=== PATIENT | male | born 1990 | race Caucasian/White ===

== ENCOUNTER 2017-07-07 22:31 | Emergency (ER) | payer SELFPAY ==
[~2017-07-07] VITALS: Ht 182.9 cm; Wt 70.0 kg
[~2017-07-07 22:31] MED LIST: BACT800T5 PO; CIPR500T4 PO; NOVONP2 SQ; NRSS SQ
[2017-07-07 22:32] VITALS: BP 173/112; PULSE 93; RESP 16; TEMP 97.8; O2SAT 99
--- NOTE | 2017-07-08 00:27 | PD ---
HPI Chief Complaint: Skin Problem Time Seen by Provider: 23:14 Travel History International Travel<30 days: No Contact w/Intl Traveler<30days: No Traveled to known affect area: No History of Present Illness HPI Patient is a 24-year-old male presenting to the emergency department for evaluation of a possible abscess behind his right ear. Patient states it started 3 days ago. He reports a history of the same 2 years ago and had it drained. He denies any significant pain but states it sore and rates it a 3 out of 10. He denies any fever, chills, redness or warmth. The muscle was gradual, symptoms are mild in nature. Patient has no other complaints at this time. He denies a significant past medical history. PFS Past Medical History Medical History: Denies Significant Hx Asthma: No Autoimmune Disease: No Blood Disorders: No Anxiety: No Depression: No Heart Rhythm Problems: No Cardiovascular Problems: No High Cholesterol: No Chest Pain: No Congestive Heart Failure: No COPD: No Diabetes: Yes Patient Takes Glucophage: No Diminished Hearing: No Endocrine: No Gastrointestinal Disorders: Yes (REFLUX WHEN HE WAS YOUNGER) Genitourinary: No Hypertension: No Implanted Vascular Access Dvce: No Musculoskeletal: No Neurologic: No Psychiatric: No Reproductive: No Respiratory: No Immunizations Current: Yes Sleep Apnea: No Past Surgical History Appendectomy: Yes Tonsillectomy: Yes Other Surgery: No Social History Alcohol Use: Yes (OCCASIONAL) Tobacco Use: Yes (1PPD) Substance Use: No (DENIES) Allergies-Medications (Allergen,Severity, Reaction): Coded Allergies: cefaclor (Unverified Allergy, Severe, Rash, 09/22/16) Reported Meds & Prescriptions Reported Meds & Active Scripts Active Bactrim DS (Sulfamethoxazole-Trimethoprim DS) 1 Tab Tab 1 Tab PO Q12 7 Days Cipro (Ciprofloxacin HCl) 500 Mg Tab 500 Mg PO BID 7 Days Reported Novolin Regular Insulin Supplemental Scale (Insulin Human Regular) U 100 Inj 1 Unit SQ .XX Novolin N (Insulin Human NPH) 100 Units/Ml Inj 1 Units SQ DIRECTED Review of Systems Except as stated in HPI: all other systems reviewed are Neg Physical Exam Narrative GENERAL: Well-developed, well-nourished, alert male. Presenting in no acute distress. SKIN: Warm and dry. 1 cm sebaceous cyst to the postauricular area on the right ear. No surrounding erythema or induration. HEAD: Normocephalic. EYES: No scleral icterus. No injection or drainage. NECK: Supple, trachea midline. No JVD or lymphadenopathy. CARDIOVASCULAR: Regular rate and rhythm without murmurs, gallops, or rubs. RESPIRATORY: Breath sounds equal bilaterally. No accessory muscle use. GASTROINTESTINAL: Abdomen soft, non-tender, nondistended. MUSCULOSKELETAL: No cyanosis, or edema. BACK: Nontender without obvious deformity. No CVA tenderness Data Data Last Documented VS Vital Signs Date Time Temp Pulse Resp B/P (MAP) Pulse Ox O2 Delivery O2 Flow Rate FiO2 07/07/17 22:32 97.8 93 16 173/112 (132) 99 MDM Medical Decision Making Medical Screen Exam Complete: Yes Emergency Medical Condition: Yes Interpretation(s) Vital Signs Date Time Temp Pulse Resp B/P (MAP) Pulse Ox O2 Delivery O2 Flow Rate FiO2 07/07/17 22:32 97.8 93 16 173/112 (132) 99 Differential Diagnosis Sebaceous cyst versus cellulitis versus abscess versus other Narrative Course Patient is a 24-year-old male presenting to the emergency department for evaluation of a cyst to the posterior right ear. Please see procedure report for I&D. Patient is otherwise well-appearing. Initial temp was documented at 100.4, patient's temp was reassessed at 98.6. He has no sign of infection. The sebaceous this is a recurrent issue, the entire sac was evacuated from the area. Patient was advised that this could recur and if it does he should see a social worker assistant. He was encouraged return to emergency department any new or worsening symptoms. Patient was also given verbal wound care instructions. Diagnosis Primary Impression: Sebaceous cyst Additional Impression: Encounter for incision and drainage procedure Referrals: [facility] Primary Care Physician Patient Instructions: Cyst (ED), General Instructions, Incision and Drainage ( ED) Additional Instructions: Follow-up with your primary doctor Follow-up with a social worker assistant Keep incision clean and dry, cover with dressing until well healed. Return to emergency department for any new or worsening symptoms Take [id number] acetaminophen or ibuprofen as needed and as directed for pain Med/Other Pt SpecificInfo: No Meds Exist/No RX given Disposition: 01 DISCHARGE HOME Condition: Stable Dhara Marcano July 08, 2017 00:27
== END 2017-07-08 01:05 | disposition home or self-care (01) ==
LOC: NEPD 22:31
DX: L72.3 Sebaceous cyst (principal); F17.200 Nicotine dependence, unspecified, uncomplicated
CPT/HCPCS: 10060